=== PATIENT | female | born 1955 | race Caucasian/White ===

== ENCOUNTER → 2017-03-17 | Outpatient (CLI) | payer OTHER ==
--- NOTE | 2017-03-17 16:18 | RADIOLOGY REPORT (SQ) ---
EXAM DESCRIPTION: MRI RT LOWER JOINT WITHOUT COMPLETED DATE/TIME: 03/17/2017 11:56 am REASON FOR STUDY: PAIN IN RIGHT KNEE (M25.561) M25.561 PAIN IN RIGHT KNEE COMPARISON: None. TECHNIQUE: Rightknee images acquired and stored on PACS. Multiplanar images include fat sensitive s equences as T1, water sensitive sequences as FST2 or STIR, cartilage sensitive sequences as FSPD, and gradient echo sequences. LIMITATIONS: None. FINDINGS: JOINT AND BURSAE: Moderate size suprapatellar knee joint effusion. No Sellers's cyst. BONE CORTEX AND MARROW: No alteration of signal to suggest marrow replacement. No worrisome bone lesi ons. No occult fracture. ACL: Diffusely high signal on sagittal T1 weighted images with an intact anterior band on sagittal gr adient echo images from ACL strain PCL: Intact. MCL: Intact. No periligamentous edema or fluid. LCL: Intact. No periligamentous edema or fluid. MEDIAL MENISCUS: No tears. No abnormal signal. There is a 1.6 x 1.4 cm septated cyst adjacent to the anterior horn medial meniscus, either a parameniscal cyst or small ganglion cyst. There is adjacent edema in the anterior edge medial tibial plateau on axial images 16-20, and sagittal image 17 LATERAL MENISCUS: No tears. No abnormal signal. MEDIAL COMPARTMENT: Minimal chondromalacia along the medial femoral condyle weight-bearing surface. N o bone bruises or reactive marrow edema. No osteophytes. LATERAL COMPARTMENT: Cartilage preserved. No bone bruises or reactive marrow edema. No osteophytes. PATELLA: Advanced midline patellar chondromalacia, with an irregular articular surface. There is hig h-grade chondromalacia with irregular articular surface along the lateral femoral condyle at the bower llofemoral joint, best shown on coronal image 10 and sagittal image 9. Medial and lateral retinacula intact. EXTENSOR MECHANISM: Intact. Quadriceps and patella tendons normal. SOFT TISSUES: Adjacent muscles and subcutaneous tissues normal. Normal flow void in popliteal artery and vein. OTHER: No other significant finding. IMPRESSION: Suprapatellar knee joint effusion Advanced chondromalacia patellae, advanced chondromalacia lateral femoral condyle at the patellofemor al joint. Parameniscal cyst versus small ganglion cyst adjacent to the anterior horn medial meniscus with adjac ent marrow edema in the anterior edge tibial plateau. TECHNICAL DOCUMENTATION: JOB ID: [id number] [employer]- All Rights Reserved
== END ==
LOC: RAD 10:48
PROVIDERS: ATTEND Orthopaedic Surgery Sports Medicine
DX: M25.561 Pain in right knee (principal); M25.461 Effusion, right knee